=== PATIENT | male | born 1990 | race Caucasian/White ===

== ENCOUNTER → 2018-07-27 | Outpatient (REF) | payer OTHER ==
[~2018-07-27] MED LIST: AMOX-559 PO; ANTI DEPRESSANT; LOR1 PO; PAN40 PO; RIS1 PO; SUMA50TA34 PO
== END ==
LOC: ZZSENDIN 16:46
PROVIDERS: ATTEND Family Medicine
DX: Z11.3 Encounter for screening for infections with a predominantly sexual mode of transmission (principal); M10.9 Gout, unspecified
CPT/HCPCS: 84550; 87491; 87591